=== PATIENT | female | born 1945 | race Hispanic/Latino ===

== ENCOUNTER 2016-12-23 14:28 | Outpatient (CLI) | payer BC, MEDICARE ==
--- NOTE | 2016-12-23 17:08 | MRI ---
MRI LUMBAR SPINE WITHOUT CONTRAST: Date: 12/23/16 HISTORY: Low back pain radiating to the left knee and leg. FINDINGS: The vertebral body heights and marrow signal are maintained. The conus medullaris ends at the L1 lev el. Disc desiccation with bulging discs are seen along the lumbar spine with bilateral facet hypertr ophic changes and ligamentum hypertrophic changes. These result in moderate central canal and bilate ral lateral recess stenosis at L4-5 level. There is mild bilateral neural foraminal stenosis at L5-S 1 level. Broad based disc bulge cause effacement of the anterior thecal sac and impingement of the a nterior thecal sac at L4-5 level with abutment of the nerve roots in the lateral recesses. IMPRESSION: Lumbar spondylosis with stenotic changes at L4-5 and L5-S1 levels. POS: JAY
== END 2016-12-23 14:29 | disposition home or self-care (01) ==
LOC: SCSMRI 14:28
PROVIDERS: ATTEND Orthopaedic Surgery
DX: M54.5 Low back pain (principal); M47.816 Spondylosis without myelopathy or radiculopathy, lumbar region
CPT/HCPCS: 72148

== ENCOUNTER 2020-01-15 12:40 | Outpatient (CLI) | payer BC, MEDICARE ==
--- NOTE | 2020-01-15 14:06 | MRI ---
MRI LUMBAR SPINE WITHOUT CONTRAST: 01/15/20 HISTORY: Lumbar radiculopathy. Low back pain. Comparison made to MRI lumbar spine dated 12/23/16. FINDINGS: The lumbar vertebrae maintain height. Degenerative changes are again noted. Anterior osteophytes with mild anterior wedging is seen at T12, L1 and L2. These findings are stable. Mild osteophytes from th e L3, L4 and L5 vertebrae. Degenerative disc changes. Loss of disc space at L4-5. Loss of disc space at L1-2. These findings are stable. There is a mild anterolisthesis at L4-5 which has progressed from 12/21/16. Broad based bulge at this level. Findings at each level are described. L1-2: A broad based disc bulge flattens the thecal sac. Facet arthrosis. Mild posterior epidural fat. These changes result in mild central canal stenosis which appears stable from prior exam. L2-3: Diffuse disc bulge flattens the thecal sac anteriorly. Moderate facet hypertrophy. Mild central canal stenosis which appears stable. L3-4: Mild disc bulge. Moderate facet hypertrophy. Mild to moderate central canal stenosis. Not signi ficantly changed. L4-5: Anterolisthesis has slightly progressed since prior exam. This is a grade I spondylolisthesis measured at 4 to 5 mm. there is a diffuse disc bulge present. Prominent facet and ligamentous hypertr ophy. These changes result in severe central canal stenosis. The central canal stenosis has progresse d and become more severe when compared to the prior study. Mild foraminal encroachment due to the disc bulge and hypertrophic change. L5-S1: Annular fissure with small disc protrusion which is broad based. Facet hypertrophy. No signifi cant central canal stenosis. Bilateral foraminal stenosis more severe on the left due to disc osteoph yte complex projecting to the left. Contact and possible displacement of the exiting left L5 nerve ro ot. IMPRESSION: 1. Severe central canal stenosis at L4-5 which has progressed since prior exam as described. 2. See findings at other levels as described above. POS: [facility]W
== END 2020-01-15 12:41 | disposition home or self-care (01) ==
LOC: SCSMRI 12:40
PROVIDERS: ATTEND Specialist
DX: M47.26 Other spondylosis with radiculopathy, lumbar region (principal); M48.061 Spinal stenosis, lumbar region without neurogenic claudication; M25.78 Osteophyte, vertebrae; M51.16 Intervertebral disc disorders with radiculopathy, lumbar region; M43.16 Spondylolisthesis, lumbar region
CPT/HCPCS: 72148

== ENCOUNTER 2021-03-08 12:20 | Outpatient (CLI) | payer MEDICARE, BC | END 2021-03-08 12:21 | disposition home or self-care (01) | LOC: SCSMRI 12:20 | PROVIDERS: ATTEND Specialist | DX: M51.16 Intervertebral disc disorders with radiculopathy, lumbar region (principal); M43.16 Spondylolisthesis, lumbar region; M48.061 Spinal stenosis, lumbar region without neurogenic claudication | CPT/HCPCS: 72148 ==

== ENCOUNTER 2021-03-31 13:08 | Outpatient (CLI) | payer MEDICARE, BC | END 2021-03-31 13:09 | disposition home or self-care (01) | LOC: TBSIIMAG 13:08 | PROVIDERS: ATTEND Surgery | DX: M43.16 Spondylolisthesis, lumbar region (principal) | CPT/HCPCS: 72120 ==

== ENCOUNTER 2021-04-01 11:01 | Outpatient (CLI) | payer MEDICARE, BC ==
[2021-04-01 12:08] LABS: Hemoglobin 12.9 g/dL (12.0-15.5); Mean Corpuscular HGB CONC 32.4 g/dL (32.0-36.0); Mean Corpuscular Hemoglobin 29.2 pg (27.0-33.0); Mean Platelet Volume 8.5 fl (7.4-10.4); Platelet Count 320 10x3/uL (150-450); RBC Distribution Width 14.9 % (11.5-14.5); Red Blood Cell (RBC) Count 4.42 10x6/uL (3.90-5.03); White Blood Cell (WBC) Count 5.7 10x3/uL (3.5-10.5)
[2021-04-01 12:20] LABS: PTT 37.1 sec (22.0-33.0); Prothrombin Time 11.4 sec (9.5-12.1)
[2021-04-01 12:24] LABS: Anion Gap 11 mmol/L (10-20); BUN (Urea Nitrogen) 11 mg/dL (9.8-20.1); Calc. Creatinine Clearance 0 mL/min (70-130); Calcium 9.3 mg/dL (7.8-10.44); Carbon Dioxide 29 mmol/L (23-31); Chloride 105 mmol/L (98-107); Glucose 101 mg/dL (83-110); Potassium 4.5 mmol/L (3.5-5.1); Sodium 140 mmol/L (136-145)
[2021-04-02 01:32] LABS: SARS-CoV-2 PCR by NAA Not Detected (NotDetected)
== END 2021-04-01 11:02 | disposition home or self-care (01) ==
LOC: LABBT 11:01
PROVIDERS: ATTEND Surgery
DX: Z01.818 Encounter for other preprocedural examination (principal); M43.16 Spondylolisthesis, lumbar region; M48.062 Spinal stenosis, lumbar region with neurogenic claudication; Z20.822 Contact with and (suspected) exposure to COVID-19
CPT/HCPCS: 80048; 85027; 85610; 85730; 93005; U0003; U0005; 93010

== ENCOUNTER 2021-04-06 07:36 | Observation (INO) | payer MEDICARE, BC ==
[2021-04-06] MEDS ORDERED: ceFAZolin 2 GM/DEX 5% 100 ML BAG ONE (08:29)
[2021-04-06] MEDS ORDERED: Midazolam HCl 2 mg/2 ml Vial ONE (09:23)
[2021-04-06] MEDS ORDERED: Thrombin 5000 UNITS/5 ML VIAL ONE (10:10)
[2021-04-06] MEDS ORDERED: Lidocaine 2% Jelly 5 ML TUBE ONE (10:19)
[2021-04-06] MEDS ORDERED: Fentanyl 100 MCG/2 ML VIAL ONE ×3 (10:19→14:56)
[2021-04-06] MEDS ORDERED: Glycopyrrolate 0.2 MG/ML 5 ML SYRINGE ONE (10:36)
[2021-04-06] MEDS ORDERED: Rocuronium Bromide 10 MG/ML (10ML VIAL) ONE (10:36)
[2021-04-06] MEDS ORDERED: Phenylephrine 10 MG/ML VIAL ONE (10:36)
[2021-04-06] MEDS ORDERED: Ketorolac Tromethamine 30 MG/ML VIAL ONE (10:36)
[2021-04-06] MEDS ORDERED: Ondansetron PF 4 MG/2 ML Vial ONE (10:36)
[2021-04-06] MEDS ORDERED: PROPOFOL 200 MG/20 ML VIAL ONE (10:36)
[2021-04-06] MEDS ORDERED: Lidocaine 1% PF 5 ML VIAL ONE (10:36)
[2021-04-06] MEDS ORDERED: Acetaminophen 325 MG TAB PO PRN (13:24)
[2021-04-06] MEDS ORDERED: Acetaminophen/Codeine 30-300mg Tablet PO PRN (13:24)
[2021-04-06] MEDS ORDERED: traMADol HCl 50 MG TAB PO PRN (13:24)
[2021-04-06] MEDS ORDERED: Ondansetron PF 4 MG/2 ML Vial IVP PRN (13:24)
[2021-04-06] MEDS ORDERED: tiZANidine HCl 4 MG TAB PO PRN (13:27)
[2021-04-06] MEDS ORDERED: ALPRAZolam 0.25 MG TAB PO PRN (13:27)
[2021-04-06] MEDS ORDERED: Promethazine HCl 25 MG/ML VIAL IM PRN (13:36)
[2021-04-06] MEDS ORDERED: Promethazine HCl 25 MG/ML VIAL IVPB PRN (13:36)
[2021-04-06] MEDS ORDERED: Ondansetron HCl/PF 4 MG/2 ML Vial IVP PRN (13:36)
[2021-04-06] MEDS ORDERED: Morphine 4 MG/ML VIAL SLOW IVP PRN (14:27)
[2021-04-06 16:44] VITALS: BMI 29.9
[2021-04-06] MEDS: Sodium Chloride 0.9% 1,000 ML IV SCH (17:08)
[2021-04-06] MEDS: ceFAZolin 2 GM/Dextrose 50 ML 2 GM in Premix Bag 1 BAG IVPB SCH (17:45)
[2021-04-06] MEDS: HYDROcodone/Acetaminophen 7.5/325 mg Tablet PO PRN (20:23)
[2021-04-07] MEDS: ceFAZolin 2 GM/Dextrose 50 ML 2 GM in Premix Bag 1 BAG IVPB SCH (00:06)
[2021-04-07] MEDS: HYDROcodone/Acetaminophen 7.5/325 mg Tablet PO PRN (04:39)
[2021-04-07] MEDS: Sodium Chloride 0.9% 1,000 ML IV SCH (05:36)
[2021-04-07] MEDS ORDERED: Levothyroxine Sodium 25 MCG TAB PO SCH (06:00)
[2021-04-07 07:48] VITALS: BP 125/74; TEMP 98.4
[2021-04-07] MEDS ORDERED: Losartan 25 MG TAB PO SCH (09:00)
[2021-04-07] MEDS ORDERED: Alogliptin 25 MG TAB PO SCH (09:00)
== END 2021-04-07 13:00 | disposition home or self-care (01) ==
LOC: SDC 07:36 → MSONC 13:29
PROVIDERS: ADMIT Surgery; ATTEND Surgery
PROC: 01NB0ZZ Release Lumbar Nerve, Open Approach (ICD-10-PCS; principal; 2021-04-06)
DX: M48.062 Spinal stenosis, lumbar region with neurogenic claudication (principal); M48.07 Spinal stenosis, lumbosacral region; M43.16 Spondylolisthesis, lumbar region; I10 Essential (primary) hypertension; E20.9 Hypoparathyroidism, unspecified; R73.03 Prediabetes; Z79.84 Long term (current) use of oral hypoglycemic drugs; Z79.899 Other long term (current) drug therapy
CPT/HCPCS: 76000; 96365; 96375; 96376; G0378; J0690; J1885; J2250; J2270; J2370; J2405; J2704; J3010; J3370; J7050